=== PATIENT | female | born 1985 | race Caucasian/White ===

== ENCOUNTER 2022-06-12 10:42 | Emergency (ER) | payer BC, SELFPAY ==
[2022-06-12 11:15] VITALS: BP 141/96; PULSE 68; RESP 20; TEMP 36.6; O2SAT 96; BMI 30.9
[2022-06-12 11:57] LABS: Basophils # 0.1 10^3/uL (0.0-0.1); Eosinophils # 0.4 10^3/uL (0.0-0.8); Eosinophils % 5.7 %; Hematocrit 42.4 % (37.0-47.0); Hemoglobin 13.7 g/dL (11.5-15.3); Lymphocytes # 2.2 10^3/uL (0.8-4.8); Lymphocytes % 31.7 %; Mean Corpuscular HGB Conc 32.3 g/dL (30.0-36.0); Mean Corpuscular Hemoglobin 30.9 pg (28.0-34.0); Mean Corpuscular Volume 95.7 fl (81-99); Mean Platelet Volume 9.5 fL (7.4-10.4); Monocytes # 0.5 10^3/uL (0.2-0.9); Monocytes % 7.1 %; Neutrophils % 54.2 %; Nucleated Red Blood Cells % 0 %; Platelet Count 282 10^3/cmm (130-400); Red Blood Count 4.43 10^6/uL (4.1-5.3); Red Cell Distribution Width 12.5 % (12.1-15.1)
[2022-06-12 12:19] LABS: Alanine Aminotransferase 9 U/L (0-33); Albumin Level 3.9 g/dL (3.5-5.2); Alkaline Phosphatase 108 U/L (35-105); Aspartate Amino Transferase 13 U/L (0-32); Blood Urea Nitrogen 9 mg/dL (6-20); Calcium 9.3 mg/dL (8.5-10.5); Carbon Dioxide 26 mmol/L (22-29); Chloride 102 mmol/L (98-107); Globulin 3.5 g/dL (1.3-4.6); Glomerular Filtration Rate 138.1 mL/min (90-130); Glucose 91 mg/dL (65-115); Lipase 15 U/L (13-60); Osmolality Calculated 282 mOsm/kg (285-295); Sodium 137 mmol/L (136-145); Total Bilirubin 0.2 mg/dL (0.15-1.2); Total Protein 7.4 g/dL (6.6-8.7)
[2022-06-12 16:11] VITALS: BP 152/103; PULSE 57; RESP 14; TEMP 36.3; O2SAT 97
--- NOTE | 2022-06-12 18:50 | XRR_ITS ---
PROCEDURE INFORMATION: Exam: XR Abdomen Exam date and time: 06/12/2022 8:00 PM Age: 36 years old Clinical indication: Abdominal pain; Epigastric; Prior surgery; Surgery date: 1-6 months; Surgery type: Gb; Additional info: Abd pain TECHNIQUE: Imaging protocol: Radiologic exam of the abdomen. Views: Frontal supine view of the abdomen. 1 View. COMPARISON: No relevant prior studies available. FINDINGS: Gastrointestinal tract: Normal. No bowel dilation. Organs: Surgical clips in the gallbladder fossa consistent with cholecystectomy. Bones/joints: Unremarkable. XR/XR KUB portable 20233 IMPRESSION: No acute findings.
[2022-06-12 19:00] VITALS: BP 130/72; PULSE 62; RESP 15; O2SAT 93
--- NOTE | 2022-06-12 19:14 | W.ED.NAVMDI ---
HPI - Nausea/Vomiting/Diarrhea General: Chief complaint: Nausea/Vomiting/Diarrhea Stated complaint: n/v Time Seen by Provider: 06/12/22 10:48 Source: patient History of Present Illness: 36-year-old female with a stated history of gastroparesis. She presents with abdominal pain on and off since Wednesday. She notes that she had pain Wednesday and threw up. The next 2 days she says were improved. Last night, she began to throw up as well, and have increasing pain. She is thrown up several times today and had pain. No diarrhea, no blood in the stool, no fever. She has a history of cholecystectomy. This is her only belly surgery. MD elicited complaint: nausea, vomiting and abdominal pain Pertinent past history: other Onset (ago): day(s) Description of vomiting: food contents and watery Associated nausea: Yes Associated abdominal pain: Yes Location of pain: Diffuse and Epigastric Radiation: diffuse Pain consistency: intermittent Severity: severe Quality: aching Exacerbating factors: eating Relieving factors: none Associated symtoms: Reports bloating, headache(s) and nausea; Denies altered mental status, chest pain, cough, fatigue, fevers/chills, myalgias, short of breath or syncope Review of Systems Const: Denies: fatigue ENMT: Denies: throat pain Card: Denies: chest pain or syncope Resp: Denies: dyspnea, productive cough or non-productive cough GI: Reports: abdominal pain, nausea and bloating : Denies: flank pain Neuro: Reports: headache(s) Physical Exam Const: COMMON NORMALS: no acute distress EXAM LIMITATIONS: no altered mental status GENERAL APPEARANCE: cooperative; not ill appearing and not frail appearing HENMT: COMMON NORMALS: normocephalic, atraumatic and Normal external nose present HEAD & SCALP: normocephalic and atraumatic FACE & SINUS: normal facial exam and face symmetric NOSE: Normal external nose present Eye: COMMON NORMALS: Equal, round and reactive pupils present and EOMs intact bilaterally PUPIL: Yes Equal, round and reactive pupils present Neck/C-Spine: GENERAL: Yes trachea midline Chest: CHEST: Yes Symmetrical chest wall rise Resp: COMMON NORMALS: normal respiratory effort, No retractions, No use of accessory muscles and clear to auscultation bilaterally AUSCULTATION: clear to auscultation bilaterally Cardio: COMMON NORMALS: regular rate and regular rhythm RATE: regular rate RHYTHM: regular rhythm GI: COMMON NORMALS: Normal to inspection, nondistended, normoactive bowel sounds present and Soft to palpation PALPATION: Yes Soft to palpation and Yes Tenderness to palpation present (GI) (Diffuse) : COMMON NORMALS: Yes no CVA tenderness BLADDER/KIDNEY EXAM: Yes no CVA tenderness Back/Pelvis: COMMON NORMALS: no CVA tenderness Extremity: COMMON NORMALS: no pedal edema Neuro: ZAINA COMA SCALE: document GCS findings Zaina coma scale eye opening: Spontaneous [place] coma scale verbal response: Orientated [place] coma scale motor response: Obey commands [place] coma scale total score: 15 SENSORY EXAM: Yes extremities (intact) Psych: COMMON NORMALS: speech normal SPEECH: Yes normal speech Skin: COMMON NORMALS: no rashes or lesions noted GENERAL SKIN EXAM: no rashes or lesions noted Course Vital Signs: Vital signs: Vital Signs Temperature 97.3 F L 06/12/22 16:11 Pulse Rate 62 06/12/22 20:29 Respiratory Rate 20 H 06/12/22 20:29 Blood Pressure 135/82 06/12/22 20:29 Pulse Oximetry 97 06/12/22 20:29 Oxygen Delivery Me thod 06/12/22 16:11 MDM - Nausea/Vomiting/Diarrhea Medical Decision Making Reglan and Zofran were prescribed for this patient, but she notes that she is allergic to Reglan, and that Zofran does not seem to ever help her. She requests a GI cocktail and Benadryl plus or minus promethazine. This was ordered for her. 2 L bolus was also ordered. KUB is nonacute. She is not obstructed. CBC is normal. BMP is normal. Other laboratory is benign. Lipase is 15. She is feeling much improved after IV fluid, and antiemetic. She will get 1 more liter of fluid, and go home on scheduled promethazine. She will be prescribed rectal promethazine as needed in case she is vomiting oral medication Lab Data : 06/12/22 11:48 06/12/22 11:48 Radiology Impressions KUB X-Ray 06/12/22 18:50 IMPRESSION: No acute findings. Laboratory Results WBC 7.0 10^3/uL (4.0-10.0) 06/12/22 11:48 RBC 4.43 10^6/uL (4.1-5.3) 06/12/22 11:48 Hgb 13.7 g/dL (11.5-15.3) 06/12/22 11:48 Hct 42.4 % (37.0-47.0) 06/12/22 11:48 MCV 95.7 fl (81-99) 06/12/22 11:48 MCH 30.9 pg (28.0-34.0) 06/12/22 11:48 MCHC 32.3 g/dL (30.0-36.0) 06/12/22 11:48 RDW 12.5 % (12.1-15.1) 06/12/22 11:48 Plt Count 282 10^3/cmm (130-400) 06/12/22 11:48 MPV 9.5 fL (7.4-10.4) 06/12/22 11:48 Neut % (Auto) 54.2 % 06/12/22 11:48 Lymph % (Auto) 31.7 % 06/12/22 11:48 [place] % (Auto) 7.1 % 06/12/22 11:48 Eos % (Auto) 5.7 % 06/12/22 11:48 Baso % (Auto) 1.0 % 06/12/22 11:48 Neut # (Auto) 3.80 10^3/uL (1.8-7.7) 06/12/22 11:48 Lymph # (Auto) 2.2 10^3/uL (0.8-4.8) 06/12/22 11:48 [place] # (Auto) 0.5 10^3/uL (0.2-0.9) 06/12/22 11:48 Eos # (Auto) 0.4 10^3/uL (0.0-0.8) 06/12/22 11:48 Baso # (Auto) 0.1 10^3/uL (0.0-0.1) 06/12/22 11:48 Nucleated RBC % (auto) 0 % 06/12/22 11:48 Nucleated RBCs # 0.0 /100WBC 06/12/22 11:48 Sodium 137 mmol/L (136-145) 06/12/22 11:48 Potassium 4.0 mmol/L (3.5-5.1) 06/12/22 11:48 Chloride 102 mmol/L (98-107) 06/12/22 11:48 Carbon Dioxide 26 mmol/L (22-29) 06/12/22 11:48 Anion Gap 13.0 (5-19) 06/12/22 11:48 BUN 9 mg/dL (6-20) 06/12/22 11:48 Creatinine 0.5 mg/dL (0.5-0.9) 06/12/22 11:48 GFR Calculation 138.1 mL/min (90-130) H 06/12/22 11:48 Glucose 91 mg/dL (65-115) 06/12/22 11:48 POC Glucose 86 mg/dL (70-110) 06/12/22 19:58 Calculated Osmolality 282 mOsm/kg (285-295) L 06/12/22 11:48 Calcium 9.3 mg/dL (8.5-10.5) 06/12/22 11:48 Total Bilirubin 0.2 mg/dL (0.15-1.2) 06/12/22 11:48 AST 13 U/L (0-32) 06/12/22 11:48 ALT 9 U/L (0-33) 06/12/22 11:48 Alkaline Phosphatase 108 U/L (35-105) H 06/12/22 11:48 Total Protein 7.4 g/dL (6.6-8.7) 06/12/22 11:48 Albumin 3.9 g/dL (3.5-5.2) 06/12/22 11:48 Globulin 3.5 g/dL (1.3-4.6) 06/12/22 11:48 Lipase 15 U/L (13-60) 06/12/22 11:48 HCG, Qual Negative (Negative) 06/12/22 19:42 Urine Color Yellow (Yellow) 06/12/22 19:42 Urine Appearance Hazy (CLEAR) A 06/12/22 19:42 Urine pH 6 (5-7) 06/12/22 19:42 Ur Specific [place] 1.020 (1.005-1.030) 06/12/22 19:42 Urine Protein Neg (Negative) 06/12/22 19:42 Urine Glucose (UA) Norm (Normal) 06/12/22 19:42 Urine Ketones 1+ (Negative) H 06/12/22 19:42 Urine Blood Neg (Negative) 06/12/22 19:42 Urine Nitrate Negative (Negative) 06/12/22 19:42 Urine Bilirubin Neg (Negative) 06/12/22 19:42 Urine Urobilinogen Neg mg/dL (Negative) 06/12/22 19:42 Ur Leukocyte Esterase Negative (Negative) 06/12/22 19:42 Urine Opiates Screen Negative ng/mL (Negative) 06/12/22 19:42 Ur Barbiturates Screen Negative ng/mL (Negative) 06/12/22 19:42 Ur Phencyclidine Scrn Negative ng/mL (Negative) 06/12/22 19:42 Ur Amphetamines Screen Negative ng/mL (Negative) 06/12/22 19:42 U Benzodiazepines Scrn Negative ng/mL (Negative) 06/12/22 19:42 Urine Cocaine Screen Negative ng/mL (Negative) 06/12/22 19:42 U Marijuana (THC) Screen Positive ng/mL (Negative) H 06/12/22 19:42 Discharge Plan Discharge Patient Disposition: Home Clinical Impression: Vomiting, Gastroparesis Condition: Stable Prescriptions: New promethazine 25 mg suppository 25 mg HI Q6H PRN (Reason: nausea and vomiting) Qty: 12 0RF Discharge Orders: Discharge ED (Routine); Ordered 06/12/22 Ordered By: Yong Salas Patient Instructions: Gastroparesis (ED), Pain Management, Vomiting - Adult Activity Restrictions/Additional Instructions: Follow a liquid diet for the next 24 hours at least. Take promethazine scheduled every 6 hours while awake for the next 24 hours. If you vomit promethazine, you may use the rectal suppository prescribed. Return for fever greater than 100, continuing to vomit liquids, blood in the stool, other concerning symptoms. Stool softener may help as well. Follow-up with your doctor. Coding Level of Care Code ED Cryptologic Supervisor for Chg Fwd Exam Comprehensive
[2022-06-12] MEDS: ketorolac 30 mg/mL INJ 15 MG IVP (19:16)
[2022-06-12] MEDS: promethazine 25 mg/mL SDV 1 mL IM (19:20)
[2022-06-12] MEDS: lidocaine 2% viscous 15 ML, aluminum-mag hydrox-simethicon 30 ML, sucralfate oral liq 1 GM PO (19:20)
[2022-06-12] MEDS: diphenhydrAMINE 50 mg/mL SDV 1mL IVP (19:20)
[2022-06-12] MEDS: sodium chloride 0.9% 1,000 ML 999 ML IV ×2 (19:20→20:28)
[2022-06-12 19:34] LABS: Glucose Point of Care 85 mg/dL (70-110)
[2022-06-12 19:55] LABS: HCG Qualitative Urine. Negative (Negative)
[2022-06-12 20:01] LABS: Glucose Point of Care 86 mg/dL (70-110)
[2022-06-12 20:29] VITALS: BP 135/82; PULSE 62; RESP 20; O2SAT 97
[2022-06-12 20:30] LABS: Add Urine Microscopic? NO; Charge for UA Resulting for Rev
[2022-06-12 20:42] LABS: Amphetamines Screen Urine Negative (Negative); Barbiturates Screen Urine Negative (Negative); Benzodiazepines Screen Urine Negative (Negative); Cocaine Screen Urine Negative (Negative); Opiate Screen Urine Negative (Negative); PCP Screen Urine Negative (Negative); THC Screen Urine Positive (Negative)
[2022-06-12 20:56] LABS: Urine Appearance Hazy (CLEAR); Urine Color Yellow (Yellow); pH Urine 6 (5-7)
[2022-06-12 20:57] LABS: Bilirubin Urine Neg (Negative); Blood Urine Neg (Negative); Glucose Urine UA Norm (Normal); Ketones Urine 1+ (Negative); Leukocyte Esterase Urine Negative (Negative); Nitrate Urine Negative (Negative); Protein Urine Neg (Negative); Urobilinogen Urine Neg (Negative)
== END 2022-06-12 21:13 | disposition home or self-care (01) ==
PROVIDERS: Emergency Medicine; Nurse Practitioner Family; Emergency Provider Emergency Medicine
DX: K31.84 Gastroparesis (principal)
CPT/HCPCS: 36415; 36416; 74018; 80053; 80306; 81003; 81025; 82962; 83690; 85025; 96361; 96372; 96374; 96375; 99284; J1200; J1885; J2550; J7030

== ENCOUNTER → 2022-06-24 09:55 | Outpatient (BNVA) | payer BC, SELFPAY | PROVIDERS: PCP Family Medicine; Visit Provider Family Medicine | DX: E03.9 Hypothyroidism, unspecified (principal); K31.84 Gastroparesis; R13.10 Dysphagia, unspecified; J45.909 Unspecified asthma, uncomplicated; K21.9 Gastro-esophageal reflux disease without esophagitis; F41.1 Generalized anxiety disorder; F32.4 Major depressive disorder, single episode, in partial remission; G43.109 Migraine with aura, not intractable, without status migrainosus | CPT/HCPCS: 84443 ==

== ENCOUNTER → 2022-07-02 13:32 | Outpatient (BNVA) | payer BC, SELFPAY | PROVIDERS: PCP Family Medicine; Visit Provider Family Medicine | DX: E53.8 Deficiency of other specified B group vitamins (principal); K31.84 Gastroparesis | CPT/HCPCS: 82607 ==

== ENCOUNTER 2022-09-10 11:11 | Outpatient (CLI) | payer BC, SELFPAY ==
--- NOTE | 2022-09-10 12:46 | FL_ITS ---
WS: [id number] FL barium swallow modifd 87255 REASON FOR EXAM: Other dysphagia FLUOROSCOPY TIME: 2min [id number] # OF SPOT FILMS: None FINDINGS: Examination was supervised by the speech therapy department. The swallowing of varying consistencies of barium was evaluated in the sitting upright lateral projec tion. No aspiration was identified. Detailed analysis and report will be rendered by the speech therapy department. FL/FL barium swallow modifd 29032 IMPRESSION: Modified barium swallow as above.
== END 2022-09-10 11:12 | disposition home or self-care (01) ==
PROVIDERS: PCP Family Medicine; Visit Provider Electrodiagnostic Medicine
DX: R13.19 Other dysphagia (principal)
CPT/HCPCS: 74230; 92611

== ENCOUNTER 2022-09-17 10:42 | Outpatient (CLI) | payer BC, SELFPAY ==
--- NOTE | 2022-09-17 10:55 | FL_ITS ---
WS: [id number] Barium swallow and esophagram, upper GI series with air, 09/17/2022 Clinical Data: GASTROPARESIS Comparison: None. Fluoroscopy time: 1min [id number] # of spot films: 14 Findings: The patient swallowed the thick and thin barium, and it flowed through the hypopharynx without hesita tion. No stricture, mass, polyp or erosion was seen. There are surgical clips from a thyroidectomy ov erlying the inferior neck. The barium flowed into the esophagus and there was normal motility throughout. No hiatal hernia, refl ux, stricture, polyp, mass, erosion or ulcer was noted. The barium passed into the stomach which was well distended. No erosion, polyp, mass or deformity cou ld be seen. No gastric ulcer was present. Barium then passed into the duodenal bulb which distended normally without ulceration. The proximal small bowel is normal. There are clips in the right upper quadrant from a cholecystectom y. FL/FL upper GI w air* [id number] Impression: Normal esophagram and upper GI series.
== END 2022-09-17 10:43 | disposition home or self-care (01) ==
PROVIDERS: PCP Family Medicine; Visit Provider Electrodiagnostic Medicine
DX: K31.84 Gastroparesis (principal)
CPT/HCPCS: 74246

== ENCOUNTER 2023-04-25 08:32 | Emergency (ER) | payer BC, SELFPAY ==
[2023-04-25] VITALS (8 sets, daily range): BP systolic 123–141; BP diastolic 73–111; PULSE 101–110; RESP 15–22; TEMP 37.4; O2SAT 94–100
--- NOTE | 2023-04-25 08:35 | ECG_ITS ---
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 Measurements Intervals [place] Rate: 110 P: 34 DC: 143 QRS: 61 QRSD: 87 T: 35 QT: 326 QTc: 442 Interpretive Statements SINUS TACHYCARDIA NONSPECIFIC T-WAVE ABNORMALITY No previous ECG available for comparison Electronically Signed On 04-25-2023 14:51:31 CDT by Sanjeev Chandra M.D. [id number]
[2023-04-25 09:12] LABS: Basophils % 0.7 %; Eosinophils % 0.7 %; Hematocrit 37.8 % (36-47); Lymphocytes # 0.4 10^3/uL (0.8-4.8); Lymphocytes % 7.2 %; Mean Corpuscular HGB Conc 34.1 g/dL (30-55); Mean Corpuscular Hemoglobin 30.9 pg (27-33); Mean Corpuscular Volume 90.6 fl (85-98); Mean Platelet Volume 9.8 fL (7.4-10.4); Monocytes # 0.7 10^3/uL (0.2-0.9); Monocytes % 11.8 %; Neutrophils # 4.49 10^3/uL (1.8-7.7); Neutrophils % 78.9 %; Nucleated Red Blood Cells % 0 %; Platelet Count 261 10^3/cmm (157-399); Red Blood Count 4.17 10^6/uL (3.85-5.65); Red Cell Distribution Width 12.6 % (12.1-15.1); White Blood Count 5.69 10^3/uL (3.29-11.43)
[2023-04-25] MEDS: ondansetron 2 mg/ML SDV 2 mL 4 MG IVP (09:35)
[2023-04-25] MEDS: sodium chloride 0.9% 1,000 ML 999 ML IV (09:36)
[2023-04-25 09:44] LABS: Troponin(5th) Baseline < 6 ng/L (0-10)
[2023-04-25 09:45] LABS: Alanine Aminotransferase 8 U/L (0-33); Albumin Level 4.4 g/dL (3.5-5.2); Alkaline Phosphatase 101 U/L (35-105); Anion Gap 18.8 (5-19); Aspartate Amino Transferase 13 U/L (0-32); Blood Urea Nitrogen 7 mg/dL (6-20); Calcium 9.3 mg/dL (8.5-10.5); Carbon Dioxide 21 mmol/L (22-29); Chloride 100 mmol/L (98-107); Globulin 3.3 g/dL (1.3-4.6); Glomerular Filtration Rate 93.2 mL/min (90-130); Glucose 111 mg/dL (65-115); Lipase 21 U/L (13-60); Osmolality Calculated 281 mOsm/kg (285-295); Potassium 3.8 mmol/L (3.5-5.1); Sodium 136 mmol/L (136-145); Total Bilirubin 0.2 mg/dL (0.15-1.2); Total Protein 7.7 g/dL (6.6-8.7)
--- NOTE | 2023-04-25 09:46 | ED_ITS ---
HPI - Chest Pain General: Chief Complaint: Chest Pain Stated Complaint: chest pains and puking Time Seen by Provider: 04/25/23 08:38 Source: patient Mode of arrival: ambulatory History of Present Illness: 37-year-old female who presents to the emergency room with complaints of persistent nausea and vomiting. She reports a history of gastroparesis she tells me she has had a gastric emptying study done and a pill endoscopy louie hawkins her chart and her office notes from Dr. Watson looks like these were done in [place]. She does smoke marijuana daily although she did not smoke any yesterday or today. She has had minimal relief of symptoms with typical antiemetics. She gets episodes of like this 2-3 times per month. Patient is not diabetic. Patient has had small streaks of blood noted in vomitus occasionally Timing of current episode: episodic Pain location: epigastric Pain radiation: other (Substernal) Severity: severe Relieving factors: nothing Exacerbating factors: nothing Associated symptoms: Reports abdominal pain, nausea and vomiting; Deny diaphoresis, dyspnea, fever(s), leg edema, palpitations, sense of impending doom or syncope Treatment prior to arrival: other (Previously prescribed antiemetics promethazine) Review of Systems Const: Denies: fever(s), chills or diaphoresis ENMT: Denies: throat pain, ear or mastoid pain, nasal discharge or nasal congestion Card: Reports: chest pain; Denies: palpitations or syncope Resp: Denies: dyspnea GI: Reports: abdominal pain, nausea, vomiting and hematemesis (Small streaks of blood occasionally) : Denies: flank pain, difficulty voiding, dysuria, urinary frequency or urinary urgency Skin/Breast: Denies: rash or pruritus PFSH ED PFSH: Medical History Asthma Depression, major, in partial remission Gastroparesis Generalized anxiety disorder GERD (gastroesophageal reflux disease) Hiatal hernia History of colon polyps Hypothyroidism (acquired) Marijuana use Migraine with aura Umbilical hernia Surgical History History of cholecystectomy History of thyroidectomy History of tonsillectomy and adenoidectomy Family History Grandfather Cancer colon, bladder Family/Other Cancer colon Family/Other Cancer colon Father CAD (coronary artery disease) Stroke Social History Smoking and tobacco status: current every day smoker cigarettes Alcohol intake: current Alcohol intake frequency: holidays/special occasions only Substance/Drug Use: current Substance/Drug use frequency: daily Lives independently: Yes Household members: significant other, adopted family and other Details: mother Marital status details: engaged Number of children: 1 Current occupational status: employed 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 [employer] Physical Exam Const: GENERAL APPEARANCE: cooperative ORIENTATION/CONSCIOUSNESS: Yes awake, Yes oriented to person, Yes oriented to place and Yes oriented to time HENMT: COMMON NORMALS: normocephalic, atraumatic and hearing grossly normal bilaterally HEAD & SCALP: normocephalic and atraumatic Resp: COMMON NORMALS: normal respiratory effort, No retractions, No use of accessory muscles and clear to auscultation bilaterally AUSCULTATION: clear to auscultation bilaterally Cardio: COMMON NORMALS: regular rate, regular rhythm and No murmurs present (Cardio) RATE: regular rate RHYTHM: regular rhythm GI: COMMON NORMALS: No hepatosplenomegaly present AUSCULTATION: Yes normoactive bowel sounds PALPATION: Yes Tenderness to palpation present (GI) (Epigastric), No Guarding due to palpation present (GI) and Yes No hepatosplenomegaly present Extremity: COMMON NORMALS: normal to inspection, capillary refill normal, no clubbing, cyanosis or edema, no calf tenderness and no pedal edema Neuro: SENSORIUM/ORIENTATION: Yes oriented to person, Yes oriented to place a nd Yes oriented to time Skin: COMMON NORMALS: no rashes or lesions noted GENERAL SKIN EXAM: no rashes or lesions noted Course Vital Signs: Vital signs: Vital Signs Temperature 99.3 F 04/25/23 08:35 Pulse Rate 101 H 04/25/23 12:12 Respiratory Rate 16 04/25/23 12:12 Blood Pressure 123/84 04/25/23 12:12 Pulse Oximetry 98 04/25/23 12:12 Oxygen Delivery Me thod Room Air 04/25/23 12:00 Oxygen Flow Rate 2 04/25/23 10:15 MDM - Chest Pain Medical Decision Making Improved with Haldol and Ativan. She is listed as having gastroparesis based on his reported history she states she had a gastric emptying study when she was in [place]. In reviewing some of her history and talking to suspect a large portion of this may be caused by cannabis use. She did respond well to the Haldol and Ativan. Will discharge home on olanzapine and Ativan to use as needed encourage abstinence from marijuana products follow-up with primary care Medical Records I reviewed the patient's medical records. Lab Data I reviewed the patient's lab results. 04/25/23 08:58 04/25/23 08:58 Laboratory Results WBC 5.69 10^3/uL (3.29-11.43) 04/25/23 08:58 RBC 4.17 10^6/uL (3.85-5.65) 04/25/23 08:58 Hgb 12.90 g/dL (11.27-16.99) 04/25/23 08:58 Hct 37.8 % (36-47) 04/25/23 08:58 MCV 90.6 fl (85-98) 04/25/23 08:58 MCH 30.9 pg (27-33) 04/25/23 08:58 MCHC 34.1 g/dL (30-55) 04/25/23 08:58 RDW 12.6 % (12.1-15.1) 04/25/23 08:58 Plt Count 261 10^3/cmm (157-399) 04/25/23 08:58 MPV 9.8 fL (7.4-10.4) 04/25/23 08:58 Neut % (Auto) 78.9 % 04/25/23 08:58 Lymph % (Auto) 7.2 % 04/25/23 08:58 [place] % (Auto) 11.8 % 04/25/23 08:58 Eos % (Auto) 0.7 % 04/25/23 08:58 Baso % (Auto) 0.7 % 04/25/23 08:58 Neut # (Auto) 4.49 10^3/uL (1.8-7.7) 04/25/23 08:58 Lymph # (Auto) 0.4 10^3/uL (0.8-4.8) L 04/25/23 08:58 [place] # (Auto) 0.7 10^3/uL (0.2-0.9) 04/25/23 08:58 Eos # (Auto) 0.0 10^3/uL (0.0-0.8) 04/25/23 08:58 Baso # (Auto) 0.0 10^3/uL (0.0-0.1) 04/25/23 08:58 Nucleated RBC % (auto) 0 % 04/25/23 08:58 Nucleated RBCs # 0.0 /100WBC 04/25/23 08:58 Sodium 136 mmol/L (136-145) 04/25/23 08:58 Potassium 3.8 mmol/L (3.5-5.1) 04/25/23 08:58 Chloride 100 mmol/L (98-107) 04/25/23 08:58 Carbon Dioxide 21 mmol/L (22-29) L 04/25/23 08:58 Anion Gap 18.8 (5-19) 04/25/23 08:58 BUN 7 mg/dL (6-20) 04/25/23 08:58 Creatinine 0.7 mg/dL (0.5-0.9) 04/25/23 08:58 GFR Calculation 93.2 mL/min (90-130) 04/25/23 08:58 Glucose 111 mg/dL (65-115) 04/25/23 08:58 Calculated Osmolality 281 mOsm/kg (285-295) L 04/25/23 08:58 Calcium 9.3 mg/dL (8.5-10.5) 04/25/23 08:58 Total Bilirubin 0.2 mg/dL (0.15-1.2) 04/25/23 08:58 AST 13 U/L (0-32) 04/25/23 08:58 ALT 8 U/L (0-33) 04/25/23 08:58 Alkaline Phosphatase 101 U/L (35-105) 04/25/23 08:58 Troponin T Baseline < 6 ng/L (0-10) 04/25/23 08:58 Troponin T 120 Minute < 6.0 ng/L (0-10) 04/25/23 10:48 Delta Troponin T 0 ABS# (0-10) 04/25/23 10:48 Total Protein 7.7 g/dL (6.6-8.7) 04/25/23 08:58 Albumin 4.4 g/dL (3.5-5.2) 04/25/23 08:58 Globulin 3.3 g/dL (1.3-4.6) 04/25/23 08:58 Lipase 21 U/L (13-60) 04/25/23 08:58 No radiology studies performed this visit Discharge Plan Discharge Patient Disposition: Home Clinical Impression: Cannabinoid hyperemesis syndrome, Gastroparesis Condition: Stable Prescriptions: New olanzapine 10 mg tablet,disintegrating 10 mg PO Q8H PRN (Reason: nausea and vomiting) Qty: 20 0RF Ativan 2 mg tablet 2 mg buccal TID PRN (Reason: nausea and vomiting) Qty: 20 0RF No Action levothyroxine 150 mcg tablet 150 mcg PO DAILY Qty: 30 0RF promethazine 12.5 mg tablet 12.5 mg PO TID PRN (Reason: nausea and vomiting) Qty: 30 0RF promethazine 25 mg suppository 25 mg DE Q6H PRN (Reason: nausea and vomiting) Qty: 12 0RF escitalopram oxalate 20 mg tablet 20 mg PO DAILY albuterol sulfate 90 mcg/actuation HFA aerosol inhaler 1 - 2 puff inhalation Q6H montelukast 10 mg tablet 10 mg PO DAILY 90 Days Qty: 90 0RF pantoprazole 40 mg tablet,delayed release (DR/EC) 40 mg PO DAILY Qty: 30 0RF Discharge Orders: Discharge ED (Routine); Ordered 04/25/23 Ordered By: Harman Hope Referrals: Elda Calabrese MD [Primary Care Provider] - Discharge Diet: Clear Liquid Discharge Activity: Increase activity as tolerated Patient Instructions: Opioid Safety, Pain Management Coding Level of Care Code ED Sr. Vendor Management Associate for Jorge A Culp
[2023-04-25] MEDS: lidocaine 2% viscous 15 ML, aluminum-mag hydrox-simethicon 30 ML, sucralfate oral liq 1 GM PO (09:59)
[2023-04-25] MEDS: LORazepam 2 mg/mL INJ 1 mL IVP (09:59)
[2023-04-25] MEDS: haloperidol inj 5 mg/mL INJ 1 mL 2.5 MG IVP (10:00)
--- NOTE | 2023-04-25 10:46 | ECG_ITS ---
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 Measurements Intervals [place] Rate: 104 P: 31 [place]: 170 QRS: 54 QRSD: 93 T: 12 QT: 324 QTc: 427 Interpretive Statements SINUS TACHYCARDIA NONSPECIFIC T-WAVE ABNORMALITY Compared to ECG 04/25/2023 08:35:44 No significant changes Electronically Signed On 04-25-2023 14:52:59 CDT by Sanjeev Chandra M.D. [id number]
[2023-04-25 11:30] LABS: Troponin 5 2HR < 6.0 ng/L (0-10); Troponin 5 2HR Delta 0 ABS# (0-10)
== END 2023-04-25 12:16 | disposition home or self-care (01) ==
PROVIDERS: Emergency Provider Family Medicine; PCP Family Medicine
DX: K31.84 Gastroparesis (principal); R11.2 Nausea with vomiting, unspecified; F12.90 Cannabis use, unspecified, uncomplicated; F17.210 Nicotine dependence, cigarettes, uncomplicated
CPT/HCPCS: 36415; 80053; 83690; 84484; 85025; 93005; 96361; 96374; 96375; 99284; J1630; J2060; J2405; J7030